=== PATIENT | female | born 1960 | race American Indian/Alaskan Native ===

== ENCOUNTER 2017-09-10 09:52 | Outpatient (CLI) | payer OTHER | END 2017-09-10 09:53 | disposition home or self-care (01) | LOC: LABHHL 09:52 | PROVIDERS: ATTEND Specialist | DX: C50.911 Malignant neoplasm of unspecified site of right female breast (principal) | CPT/HCPCS: 88305; 88342; 88361 ==

== ENCOUNTER 2017-09-27 15:24 | Outpatient (CLI) | payer BC ==
--- NOTE | 2017-09-28 11:13 | Magnetic Resonance Report ---
BILATERAL BREAST MRI WITHOUT AND WITH CONTRAST: 09/27/17 15:24:00 CLINICAL: Newly diagnosed right breast cancer. Status post right ultrasound and guided needle biopsy 09/09/17 with pathologic diagnosis of invasive carcinoma, NOS. [place] grade III/III. COMPARISON:08/25/17 and 09/01/17 mammograms from [facility]. TECHNIQUE: Axial 1.0-mm T1 without, axial high resolution 2.0-mm T2 and axial 1.0-mm dynamic Vibrant high-resolution postcontrast T1 fat saturation sequences on a 1.5 Raven magnet. The examination was performed with an 8 channel dedicated [place] breast coil. Post processing with CAD and subtraction was performed on an [employer] workstation. 20 cc of Multihance was injected without incident via a right antecubital vein 22-gauge INT for the contrast portion of the exam. Consent was obtained prior to the administration of the contrast. FINDINGS: Right: Minimal background parenchymal enhancement. The known breast cancer is in irregular mass at 6 o'clock 14.3 cm from the nipple measuring 29.9 mm anterior to posterior by 9 mm transverse dimension by 11.0 mm superior to inferior. It demonstrates heterogeneous enhancement with mixed kinetics, 177% peak enhancement, 72% type I persistent, 26% type II plateau and 2% type III washout. No other mass or suspicious enhancement of the right breast. No suspicious right axillary or right internal mammary lymph nodes. Left: Minimal background parenchymal enhancement. No mass or suspicious enhancement. No suspicious left axillary or left internal mammary lymph nodes. IMPRESSION: 1. Known right breast cancer at 6 o'clock 14 cm from the nipple. This mass is unusual in that it demonstrates minimal enhancement. I suspect that the MRI over estimates the size of the tumor by including post biopsy hematoma with the measurement. The mammographic measurement of the tumor is probably more accurate at 1.8 x 1.0 x 1.0 cm. 2. No suspicious lymph nodes. 3. Negative left breast. RIGHT BI-RADS 6 -- Known Cancer LEFT BI-RADS 1 -- Negative
== END 2017-09-27 15:25 | disposition home or self-care (01) ==
LOC: SPVIMAG 15:24
PROVIDERS: ATTEND Surgery
DX: C50.511 Malignant neoplasm of lower-outer quadrant of right female breast (principal)
CPT/HCPCS: A9577; C8908; 77059

== ENCOUNTER 2017-11-08 11:25 | Day surgery (SDC) | payer BC ==
[~2017-11-08 11:25] MED LIST: LACTATED RINGERS 1,000 ML IV SCH; VERSED IV NR
--- NOTE | 2017-11-08 12:22 | Anesthesia Consultation ---
Anesthesia Consult and Med Hx Date of service: 11/08/17 - Airway Anesthetic Teeth Evaluation: Good ROM Head & Neck: Adequate Mental/Hyoid Distance: Adequate Mallampati Class: Class II Intubation Access Assessment: Good - Pulmonary Exam CTA: Yes - Cardiac Exam Cardiac Exam: RRR - Pre-Operative Health Status ASA Pre-Surgery Classification: ASA3 Proposed Anesthetic Plan: General - Cardiovascular System Hx Hypertension: Yes (OVER 10 YEARS) - Central Nervous System Hx Psychiatric Problems: No - Other Systems Hx Alcohol Use: Yes (OCC) Hx Substance Use: No Hx Cancer: Yes Hx Obesity: Yes
--- NOTE | 2017-11-08 12:23 | Anesthesia Day of Surgery ---
Anesthesia Day of Surgery - Day of Surgery Patient Examined: Yes Patient H&P Reviewed: Yes Patient is NPO: Yes
[2017-11-08] MEDS ORDERED: MARCAINE 0.25% INFILTRATI ONE (12:56)
[2017-11-08] MEDS ORDERED: XYLOCAINE 1% 20 mL ONE (12:56)
[2017-11-08] MEDS ORDERED: METHYLENE BLUE ONE (12:57)
[2017-11-08] MEDS ORDERED: NACL 0.9% 0 ML ONE (12:58)
[2017-11-08] MEDS ORDERED: ANCEF ONE (12:58)
[2017-11-08] MEDS ORDERED: NEURONTIN PO NR (13:00)
[2017-11-08] MEDS ORDERED: PEPCID PO NR (13:00)
[2017-11-08] MEDS ORDERED: XYLOCAINE MPF 2% ONE (13:04)
[2017-11-08] MEDS ORDERED: DIPRIVAN 10 MG/ML IV ONE (13:04)
[2017-11-08] MEDS ORDERED: SUBLIMAZE ONE (13:04)
[2017-11-08] MEDS ORDERED: VANCOMYCIN/NS 1 GM/250 ML 1 GM/250 ML BAG IV SCH (14:00)
[2017-11-08] MEDS ORDERED: VANCOMYCIN PHARMACY TO DOSE IV SCH (14:00)
[2017-11-08] MEDS ORDERED: DECADRON ONE (14:46)
[2017-11-08] MEDS ORDERED: WATER FOR IRRIG STERILE IR ONE (15:20)
[2017-11-08] MEDS ORDERED: MARCAINE 0.5% INFILTRATI ONE (15:20)
[2017-11-08] MEDS ORDERED: XYLOCAINE 1% 20 mL INFILTRATI ONE (15:20)
[2017-11-08] MEDS ORDERED: NACL 0.9% 1000 ML 1,000 ML ONE (15:46)
[2017-11-08] MEDS ORDERED: ZOFRAN ONE (17:20)
--- NOTE | 2017-11-08 17:36 | Short Stay Summary ---
Short Stay Documentation Date of service: 11/08/17 - History H&P: obtained from office - Allergies and Medications Current Medications: Allergies Penicillins Allergy (Verified 11/02/17 12:25) Rash Home Medications Medication Instructions Recorded Confirmed Last Taken Type Aspirin EC [Aspirin Enteric Coated 81 mg PO QDAY 11/02/17 11/08/17 11/01/17 09: 00 History TAB] Ergocalciferol [Vitamin D2] 1 cap PO QWEEK 11/02/17 11/08/17 11/01/17 09:00 History Lisinopril/Hydrochlorothiazide 1 each PO DAILY 11/02/17 11/08/17 11/08/17 07:00 History [Zestoretic 10-12.5 mg Tablet] Active Medications Celecoxib (Celebrex) 200 mg PO PREOP NR Stop: 11/08/17 23:59 Last Admin: 11/08/17 12:48 Dose: 200 mg Famotidine (Pepcid) 20 mg PO PREOP NR Stop: 11/08/17 23:59 Last Admin: 11/08/17 12:47 Dose: 20 mg Gabapentin (Neurontin) 300 mg PO PREOP NR Stop: 11/08/17 23:59 Last Admin: 11/08/17 12:47 Dose: 300 mg Lactated Ringer's (Lactated Ringers) 1,000 mls @ 100 mls/hr IV DIRECT EVELINA Last Admin: 11/08/17 12:40 Dose: 100 mls/hr Vancomycin HCl (Vancomycin/Ns 1 Gm/250 Ml) 1 gm in 250 mls @ 167.007 mls/hr IV PREOP EVELINA; Protocol Stop: 11/08/17 23:59 Last Admin: 11/08/17 13:21 Dose: 167.007 mls/hr Midazolam HCl (Versed) 2 mg IV PREOP NR Stop: 11/08/17 23:59 Last Admin: 11/08/17 12:49 Dose: 2 mg - Brief post op/procedure progress note Date of procedure: 11/08/17 Pre-op diagnosis: Right breast cancer of the lower outer quadrant Post-op diagnosis: same Procedure: Right partial mastectomy with SLNB Anesthesia: GETA Findings: Radiograph specimen with clip present; 4 SLNs Surgeon: NEIL ALCANTAR Estimated blood loss: minimal Pathology: list (right partial mastectomy; 4 SLNs) Specimen disposition: to lab Condition: stable - Disposition Condition at discharge: Good Disposition: DC-01 TO HOME OR SELFCARE Short Stay Discharge Plan Activity: other (no heavy lifting) Diet: regular Wound: other (keep incision clean and dry; may shower in 48 hours; no baths, pools or lakes; do not rub or scrub incision; hold aspirin until seen by Dr. Alcantar; wear breast binder or sports bra) Follow up with: STEFAN MIGUEL MD [Primary Care Provider] - 7 Days Prescriptions: HYDROcodone/APAP 5-325 [[place] 5/325] 1 each PO Q6HR PRN #30 tablet PRN Reason: Pain Sulfamethoxazole/Trimethoprim [Bactrim DS TAB] 1 each PO BID 7 Days #14 tablet
--- NOTE | 2017-11-08 17:46 | Operative Report ---
Operative Report Operative Report: Date of Service: November 08, 2017 Preoperative diagnosis: Right breast cancer of the lower outer quadrant Postoperative diagnosis: Same Procedure: Right partial mastectomy of the lower outer quadrant and SLNB Surgeon: Cynthia Alcantar MD Anesthesia: General Findings: Right breast mass and clip present within radiograph specimen; 4 SLNs Complications: None EBL: Minimal Disposition: PACU in good condition Indications for operative procedure: This is a 57 year old lady with newly diagnosed right breast cancer of the upper outer quadrant, Stage I triple negative. Recommendations are to proceed with a partial mastectomy and SLNB. Patient wished to proceed with the above procedure. Genetic testing negative for any significant gene mutation. Procedure in detail: Patient was then taken to the operating room. Gen. anesthesia was administered. The right nipple was injected with radioisotope. The right breast and axilla were prepped and draped in the normal sterile operative fashion. Timeout was performed. Gamma probe was inserted into the axilla. The area of hot spot was identified. A right axillary incision was made with a 15 blade knife with dissection taken down to the subcutaneous tissues. The axillary fascia was opened with the Bovie cautery. Gamma probed inserted into the axilla and 4 SLNS were identified. All remaining counts were less than 10% of the highest count. Lymph nodes were sent to pathology for permanent processing. Hemostasis was obtained in the right axillary cavity. Axillary cavity was appropriately irrigated and suctioned. Hemostasis was noted. Axilla was anesthesized with 1% lidocaine with quarter percent marcaine. Axillary fascia was approximated and closed using interrupted 3-0 Vicryl and the skin brought together and closed using a running 4-0 Monocryl followed by skin affix. Attention was then taken towards the right breast. Known right breast cancer mass at the 6:00 position 14 cm from the nipple at inframammary fold. Ultrasound was used to angelito out surgical incision. A breast incision was made with a 15 blade knife at the 6:00 position 14 cm from the nipple and dissection taken down to subcutaneous tissues. First began raising of the superio flap with dissection take down to the pectoralis muscle, followed by raising of the inferior flap, medial flap and lateral flap with all flaps taken down to the pectoralis muscle. The breast area of concern was appropriately removed posteriorly from the pectoralis muscle with the aid of the Bovie cautery. Specimen was marked and then sent to pathology and radiology; radiograph specimen with clip and mass present. Breast cavity was irrigated and hemostasis was obtained. Breast cavity was anesthesized with 1% lidocaine with quarter percent marcaine.The posterior deep breast tissues were approximated and closed using interrupted 3-0 Vicryl. The subcutaneous tissues were approximated and closed using interrupted 3-0 Vicryl followed by closing of the skin with a running 4-0 Monocryl and skin affix. The patient tolerated surgery very well and she was awaken from anesthesia without any complication and transported to PACU in good condition.
[2017-11-08] MEDS ORDERED: NORCO 5/325 PO PRN (18:16)
[2017-11-08 20:12] VITALS: BP 147/85
--- NOTE | 2017-11-09 13:09 | XRay Report ---
SPECIMEN RADIOGRAPH RIGHT BREAST: 11/08/17 11:25:00 CLINICAL: Surgical excision of a known cancer. FINDINGS: A mass with a localizer clip is identified within the specimen. IMPRESSION: Excision of the targeted lesion.
== END 2017-11-08 20:00 | disposition home or self-care (01) ==
LOC: OR 11:25
PROVIDERS: ATTEND Surgery
DX: C50.511 Malignant neoplasm of lower-outer quadrant of right female breast (principal); D05.11 Intraductal carcinoma in situ of right breast; I10 Essential (primary) hypertension; E66.9 Obesity, unspecified; Z90.710 Acquired absence of both cervix and uterus; Z88.0 Allergy status to penicillin; Z79.82 Long term (current) use of aspirin; Z79.899 Other long term (current) drug therapy
CPT/HCPCS: 19301; 36415; 38525; 76098; 78800; 82962; 84132; 88307; 88341; 88342; 88361; A9541; J1100; J2250; J2405; J2704; J3010; J3370; J7030; J7120; 88333; J0690; Q9968

== ENCOUNTER 2017-12-09 08:33 | Day surgery (SDC) | payer BC ==
[2017-12-09] MEDS ORDERED: DIPRIVAN 10 MG/ML IV ONE (09:13)
[2017-12-09] MEDS ORDERED: NACL BACTERIOSTATIC INFILTRATI ONE (09:18)
--- NOTE | 2017-12-09 09:42 | Anesthesia Consultation ---
Anesthesia Consult and Med Hx Date of service: 12/09/17 - Airway Anesthetic Teeth Evaluation: Good ROM Head & Neck: Adequate Mental/Hyoid Distance: Adequate Mallampati Class: Class III Intubation Access Assessment: Possibly Difficult - Pulmonary Exam CTA: Yes - Cardiac Exam Cardiac Exam: RRR - Pre-Operative Health Status ASA Pre-Surgery Classification: ASA3 Proposed Anesthetic Plan: General - Cardiovascular System Hx Hypertension: Yes (OVER 10 YEARS) - Central Nervous System Hx Psychiatric Problems: No - Other Systems Hx Alcohol Use: Yes (OCC) Hx Substance Use: No Hx Cancer: Yes Hx Obesity: Yes
--- NOTE | 2017-12-09 09:42 | Anesthesia Day of Surgery ---
Anesthesia Day of Surgery - Day of Surgery Patient Examined: Yes Patient H&P Reviewed: Yes Patient is NPO: Yes
[2017-12-09] MEDS ORDERED: SUBLIMAZE ONE (09:46)
[2017-12-09 09:57] LABS: Hemoglobin 11.9 gm/dl (10.1-14.3); Red Blood Count 4.83 M/mm3 (3.65-5.03)
[2017-12-09 09:58] LABS: Basophils % (Auto) 0.1 % (0.0-1.8); Hematocrit 37.5 % (30.3-42.9); Lymphocytes # (Auto) 1.2 K/mm3 (1.2-5.4); Mean Corpuscular HGB Conc 32 % (30-34); Mean Corpuscular Hemoglobin 25 pg (28-32); Mean Corpuscular Volume 78 fl (79-97); Monocytes # (Auto) 0.4 K/mm3 (0.0-0.8); Monocytes % (Auto) 5.1 % (0.0-7.3); Platelet Count 244 K/mm3 (140-440); Red Cell Distribution Width 17.5 % (13.2-15.2)
[2017-12-09 09:59] LABS: BUN/Creatinine Ratio 23; Blood Urea Nitrogen 18 mg/dL (7-17); Calcium 9.4 mg/dL (8.4-10.2); Hemolysis Index 58
[2017-12-09] MEDS ORDERED: VANCOMYCIN/NS 1 GM/250 ML 1 GM/250 ML BAG IV NR (10:00)
[2017-12-09] MEDS ORDERED: LACTATED RINGERS 1,000 ML IV SCH (10:00)
[2017-12-09] MEDS ORDERED: VANCOMYCIN PHARMACY TO DOSE IV SCH (10:00)
[2017-12-09] MEDS ORDERED: DEMEROL IV PRN (10:00)
[2017-12-09] MEDS ORDERED: ZOFRAN IV PRN (10:00)
[2017-12-09] MEDS ORDERED: VERSED IV NR (10:00)
[2017-12-09] MEDS ORDERED: XYLOCAINE 1% 20 mL ONE (10:05)
[2017-12-09] MEDS ORDERED: HEPARIN 10,000 UNITS/10 ML ONE (10:06)
[2017-12-09] MEDS ORDERED: MARCAINE 0.5% 30 ML INFILTRATI ONE (10:06)
[2017-12-09] MEDS ORDERED: NACL 0.9% 250ML 0 ML ONE (10:06)
[2017-12-09] MEDS ORDERED: GELFOAM TP ONE (10:06)
[2017-12-09] MEDS ORDERED: NACL P/F VIAL (10 ML) 10 ML ONE (10:28)
[2017-12-09] MEDS ORDERED: NACL 0.9% IR ONE (10:54)
[2017-12-09] MEDS ORDERED: XYLOCAINE 1% 20 mL INFILTRATI ONE (10:55)
[2017-12-09] MEDS ORDERED: HEPARIN IV ONE (10:55)
[2017-12-09] MEDS ORDERED: NACL P/F VIAL (10 ML) INFILTRATI ONE (10:55)
[2017-12-09] MEDS ORDERED: MARCAINE 0.5% INFILTRATI ONE (10:55)
--- NOTE | 2017-12-09 11:39 | Short Stay Summary ---
Short Stay Documentation Date of service: 12/09/17 - History H&P: obtained from office - Allergies and Medications Current Medications: Allergies Penicillins Allergy (Verified 12/07/17 13:50) Rash Home Medications Medication Instructions Recorded Confirmed Last Taken Type Aspirin EC [Aspirin Enteric Coated 81 mg PO QDAY 11/02/17 12/09/17 12/08/17 History TAB] Ergocalciferol [Vitamin D2] 1 cap PO QWEEK 11/02/17 12/09/17 2 Weeks Ago History ~11/25/17 Lisinopril/Hydrochlorothiazide 1 each PO DAILY 11/02/17 12/07/17 12/08/17 History [Zestoretic 10-12.5 mg Tablet] HYDROcodone/APAP 5-325 [[place] 1 each PO Q6HR PRN #30 tablet 11/08/17 12/09/17 Rx 5/325] Clindamycin [Clindamycin CAP] 150 mg PO BID 12/07/17 12/07/17 12/08/17 History Dexamethasone 4 mg PO BID 12/07/17 12/07/17 12/08/17 History Active Medications Hydromorphone HCl (Dilaudid) 0.5 mg IV Q10MIN PRN PRN Reason: Pain , Severe (7-10) Stop: 12/09/17 16:00 Vancomycin HCl (Vancomycin/Ns 1 Gm/250 Ml) 1 gm in 250 mls @ 167.007 mls/hr IV PREOP NR; Protocol Stop: 12/09/17 18:00 Last Admin: 12/09/17 09:59 Dose: 167.007 mls/hr Lactated Ringer's (Lactated Ringers) 1,000 mls @ 100 mls/hr IV DIRECT EVELINA Last Admin: 12/09/17 09:57 Dose: 100 mls/hr Meperidine HCl (Demerol) 25 mg IV ONCE PRN PRN Reason: Shivering Stop: 12/09/17 18:00 Midazolam HCl (Versed) 2 mg IV PREOP NR Stop: 12/09/17 23:59 Last Admin: 12/09/17 09:58 Dose: 2 mg Ondansetron HCl (Zofran) 4 mg IV ONCE PRN PRN Reason: Nausea And Vomiting Stop: 12/09/17 18:00 Vancomycin HCl (Vancomycin Pharmacy To Dose) 1 each IV PKCONSULT EVELINA - Physical exam General appearance: no acute distress Integumentary: no rash, no growths, no abnormal pigmentation HEENT: Atraumatic, EOMI Lungs: Normal air movement Breasts: normal Neurological: Normal speech - Brief post op/procedure progress note Date of procedure: 12/09/17 (Dictation#[id number]) Pre-op diagnosis: breast cancer Post-op diagnosis: same Procedure: Ultrasound guided port placement Anesthesia: GETA Findings: normal anatomy Surgeon: CHRISTOPHER RAY Estimated blood loss: minimal (10cc) Pathology: none Condition: stable - Hospital course Hospital course: uneventful - Disposition Condition at discharge: Stable Disposition: DC-01 TO HOME OR SELFCARE - Discharge Diagnoses (1) Breast cancer Status: Acute Short Stay Discharge Plan Activity: no driving until cleared by PCP Diet: regular Wound: open to air, keep clean and dry, other (May shower in 48 hours. Pat dry wounds. Apply ice pack to left shoulder/neck area for 10-15min 4-5x/day) Special Instructions: no heavy lifting (or strenuous activity for 1 week) Follow up with: STEFAN MIGUEL MD [Primary Care Provider] - 7 Days
[2017-12-09] MEDS: DILAUDID IV PRN ×2 (11:40→11:50)
--- NOTE | 2017-12-09 11:47 | Fluoroscopy Report ---
AP CHEST: HISTORY: Breast cancer, Jnbnhi-z-Qnwu placement A left IJ Mvnhgx-o-Txcp has been inserted which terminates in the mid right atrium. There is no evidence for pneumothorax. Mild cardiomegaly and pulmonary venous congestion are identified. No evidence for pneumonia or CHF. The bony structures are unremarkable. IMPRESSION: Xeutbd-z-Ezqd placement as described. No pneumothorax. Mild cardiomegaly and pulmonary venous congestion but no CHF.
--- NOTE | 2017-12-09 12:05 | Operative Report ---
PREOPERATIVE DIAGNOSIS: Right breast cancer. POSTOPERATIVE DIAGNOSIS: Right breast cancer. PROCEDURE: 1. Placement of indwelling tunneled central venous catheter with subcutaneous port. 2. Ultrasound vascular guidance. ATTENDING PHYSICIAN: Diamond Gunderson MD ANESTHESIA: General. ESTIMATED BLOOD LOSS: 10 mL. FLUIDS: 300 mL. FINDINGS: Normal vascular anatomy. IMPLANTS: Infusaport. COMPLICATIONS: None. DISPOSITION: Stable, transferred to recovery. INDICATIONS: This is a 57-year-old female with recent diagnosis of right breast cancer. The patient assessed to be in need for chemotherapy immediately. General Surgery was consulted for port placement. Procedure, risks, benefits were explained to the patient. Risks included but were not limited to infection, bleeding, pain, injury to surrounding structures, possible hemopneumothorax, possible port malfunction, possible need for port replacement and/or removal. The patient understood and consented. OPERATIVE NOTE: The patient was brought to the operating room, placed on the table in supine position. I initially did an ultrasound evaluation of the left subclavian and left internal jugular veins. I think due to the body habitus the left subclavian vein was difficult to identify in deep. The left internal jugular vein was easily identified and easy to access. Therefore, decision was made for initial attempt in the left internal jugular vein. The patient was prepped and draped in usual sterile fashion. A roll had been placed behind the spine. SCDs were in place. Antibiotics had been given. Time out was performed. The patient was placed in Trendelenburg position. Under ultrasound guidance, I was able to assess the full aspect of the left internal jugular vein. It did appear to be patent. I did not see any evidence of a clot. It was easily compressible. We made a small incision in the lateral aspect of the neck. I watched the echogenic needle, entered the left internal jugular vein, had good aspiration of venous blood. I confirmed that the tip of the needle was in the center of the vein and then I passed the guidewire, it passed easily. I confirmed the placement of the guidewire in the internal jugular vein with ultrasound. Thereafter, we went to fluoroscopy, we could see the guidewire go all the way to the right side of the heart. I then injected the planned site for the port. 1% lidocaine and 0.5% Marcaine was used to anesthetize that site and the planned catheter site. Skin was sharply incised. Dissection was carried out bluntly. Hemostasis was achieved with electrocautery. I tested to make sure the port could fit easily and it did. We then tunneled the catheter up to the neck. I was able to do that without any complication. I made sure that we were above the clavicle and we came out safely from the incision in the neck. The dilator and sheath were then inserted over the wire. The guidewire was able to be periodically checked and it moved freely. Once the entire sheath was in then the dilator and the wire were removed. I covered the opening to the sheath and then passed the catheter. Initially, the catheter folded upon itself prior to entering the right atrium. However, under fluoroscopic guidance, we were able to pull the catheter back and then readjusted. It took about 3 attempts, but then finally got it to go into the right atrium. We then adjusted the length and then I proceeded to excise off the excess catheter we cut at about 38 cm and then attached the port. The locking device was placed over it and then the port was placed in the subcutaneous tissue. Because of the patient's body habitus, initially on fluoroscopy the catheter appeared to take a sharp turn between the port site and the entry into the internal jugular vein. Part of it, I thought was her body habitus and her positioning, I thought that when she was sitting upright, the tissue would then fall inferiorly, which would straighten out the catheter. I was able to easily aspirate and flush the port with the heparinized flush solution and assessed to make sure that we had good hemostasis. The sheath was completely removed. Catheter appeared to be in adequate position. I then placed the concentrated heparin locking solution. I closed the dermis at the port site with interrupted 3-0 Vicryl stitches. Skin was closed with a running 4-0 Monocryl subcuticular stitch. Skin was cleaned and dried. Dermabond was used to close both incisions. The entry site at the internal jugular vein approximated very well just because of her body habitus. Stitch was not required. It came together very easily and was just sealed with Dermabond. Postoperative chest x-ray showed no evidence of pneumothorax. Catheter appeared to be in very good position and as we had hoped when she was sitting up the catheter then was pulled downward and that straightened out the path of the catheter. was given an update. He was appreciative of our care. The patient tolerated the procedure well. All counts were correct at the end of the case. JOB# [id number] MIGUEL/MANJINDER
[2017-12-09 13:02] VITALS: BP 128/85
[2017-12-09] MEDS ORDERED: NEO SYNEPHRINE/NS Syringe(OR USE) IV ONE (13:43)
[2017-12-09] MEDS ORDERED: ZOFRAN ONE (13:43)
[2017-12-09] MEDS ORDERED: XYLOCAINE MPF 2% ONE (13:43)
== END 2017-12-09 12:53 | disposition home or self-care (01) ==
LOC: OR 08:33
PROVIDERS: ATTEND Surgery
DX: C50.511 Malignant neoplasm of lower-outer quadrant of right female breast (principal); I10 Essential (primary) hypertension; E66.9 Obesity, unspecified; E78.00 Pure hypercholesterolemia, unspecified; Z79.899 Other long term (current) drug therapy; Z88.0 Allergy status to penicillin; Z98.890 Other specified postprocedural states; Z90.710 Acquired absence of both cervix and uterus; Z79.82 Long term (current) use of aspirin
CPT/HCPCS: 36415; 36561; 76937; 77001; 80048; 82962; 85025; A4649; C1788; J1170; J1644; J2250; J2370; J2405; J2704; J3010; J3370; J7120; J7050

== ENCOUNTER 2018-10-04 10:53 | Outpatient (CLI) | payer BC ==
--- NOTE | 2018-10-04 11:37 | Mammography Report ---
BILATERAL DIGITAL SCREENING MAMMOGRAM with CAD: 10/04/18 10:53:00 CLINICAL: Routine screening.Status post right partial mastectomy 11/08/17 with subsequent radiation therapy. COMPARISON:09/16/17 and 08/25/17 FINDINGS: The breasts are almost entirely fatty. A left upper inner infusion port. Right lower posterior scar. Moderate skin thickening of the right breast. No mass, architectural distortion or suspicious calcifications. IMPRESSION: No mammographic evidence of malignancy. BI-RADS CATEGORY: 2 -- Benign RECOMMENDATION: Routine mammographic screening in one year. COMMENT: Patient follow-up letters are generated by our [employer] application.
== END 2018-10-04 10:54 | disposition home or self-care (01) ==
LOC: SPVWC 10:53
PROVIDERS: ATTEND Surgery
DX: Z12.31 Encounter for screening mammogram for malignant neoplasm of breast (principal); E78.00 Pure hypercholesterolemia, unspecified; I10 Essential (primary) hypertension; E66.9 Obesity, unspecified; Z90.710 Acquired absence of both cervix and uterus
CPT/HCPCS: 77067

== ENCOUNTER 2019-10-10 11:05 | Outpatient (CLI) | payer BC ==
--- NOTE | 2019-10-10 11:58 | Mammography Report ---
DIGITAL SCREENING MAMMOGRAM WITH CAD, 10/10/2019 INDICATION: Routine screening mammography. TECHNIQUE: Digital bilateral 2D mammography was obtained in the craniocaudal and mediolateral obliq ue projections. This examination was interpreted with the benefit of Computer-Aided Detection analysi s. COMPARISON: 10/04/2018 FINDINGS: Breast Density: There are scattered areas of fibroglandular density. There is no evidence of dominant mass, suspicious calcifications or architectural distortion in the l eft breast. Postsurgical changes are noted at the 6:00 position in the right breast, posterior depth. There is increasing homogeneous density at the operative site. Recommend further evaluation with ult rasound. IMPRESSION: Follow up recommendation: Ultrasound Category 0: Incomplete. Needs additional imaging evaluation and/or prior mammograms for comparison. A "normal" or negative report should not discourage follow up or biopsy of a clinically significant f inding. A written summary of these findings will be mailed to the patient. The patient will be entered into a mammography reporting system which will generate a reminder letter for the patient's next appointmen t at the appropriate interval. The [employer] recommends yearly mammograms starting at age 40 and continuing as l merline as a woman is in good health. Breast MRI is recommended for women with an approximate 20-25% or greater lifetime risk of breast cancer, including women with a strong family history of breast or ova melvi cancer or who have been treated for Hodgkin's disease. Signer Name: Anoop Gatica MD Signed: 10/10/2019 11:54 AM Workstation Name: [email or web address]
--- NOTE | 2019-10-10 12:51 | Mammography Report ---
DIGITAL DIAGNOSTIC MAMMOGRAM WITH CAD, 10/10/2019 INDICATION: S/P SEROMA ASPIRATION TECHNIQUE: Digital right mammographic imaging was performed. This examination was interpreted with the benefit of Computer-aided Detection analysis. COMPARISON: 10/04/2018 and 10/10/2019 FINDINGS: Breast Density: There are scattered areas of fibroglandular density. Since the screening mammogram performed today the patient has undergone aspiration of seroma of the inferior right breast at the surgical site. The previous homogeneous density noted on the screening m ammogram 10/10/2019 has decreased consistent with aspiration of fluid. The the appearance is now simil ar to the 10/04/2018 mammogram. IMPRESSION: Follow up recommendation: Routine yearly BI-RADS Category 2: Benign. A "normal" or negative report should not discourage follow up or biopsy of a clinically significant f inding. A written summary of these findings will be mailed to the patient. The patient will be entered into a mammography reporting system which will generate a reminder letter for the patient's next appointmen t at the appropriate interval. According to the [employer], yearly mammograms are recommended starting at age 40 and continuing as long as a woman is in good health. Breast MRI is recommended for women with an karma roximately 20-25% or greater lifetime risk of breast cancer, including women with a strong family his tory of breast or ovarian cancer and women who have been treated for Hodgkin's disease. Signer Name: Anoop Gatica MD Signed: 10/10/2019 12:47 PM Workstation Name: [employer]
== END 2019-10-10 11:06 | disposition home or self-care (01) ==
LOC: SPVWC 11:05
PROVIDERS: ATTEND Surgery
DX: Z12.31 Encounter for screening mammogram for malignant neoplasm of breast (principal); N64.89 Other specified disorders of breast
CPT/HCPCS: 77067

== ENCOUNTER 2020-10-10 11:32 | Outpatient (CLI) | payer BC, OTHER ==
--- NOTE | 2020-10-10 15:34 | Mammography Report ---
DIGITAL SCREENING MAMMOGRAM WITH CAD, 10/10/2020 CLINICAL INFORMATION / INDICATION: Routine screening mammography. SCREENING MAMMO TECHNIQUE: Digital bilateral 2D mammography was obtained in the craniocaudal and mediolateral obliqu e projections. This examination was interpreted with the benefit of Computer-Aided Detection analysis . COMPARISON: 10/10/19. FINDINGS: Breast Density: The breasts are almost entirely fatty. No dominant mass, suspicious calcifications, or architectural distortion in the left breast. There is a left Port-A-Cath. Post lumpectomy/radiation changes in the right inferior breast posteriorly are stable. No new abnorma lity is seen. IMPRESSION: No mammographic evidence of malignancy. Follow up recommendation: Routine yearly BI-RADS Category 2: Benign. A "normal" or negative report should not discourage follow up or biopsy of a clinically significant f inding. A written summary of these findings will be mailed to the patient. The patient will be entered into a mammography reporting system which will generate a reminder letter for the patient's next appointmen t at the appropriate interval. The [employer] recommends yearly mammograms starting at age 40 and continuing as l merline as a woman is in good health. Breast MRI is recommended for women with an approximate 20-25% or greater lifetime risk of breast cancer, including women with a strong family history of breast or ova meliv cancer or who have been treated for Hodgkin's disease. Signer Name: Bret Galvez MD Signed: 10/10/2020 3:30 PM Workstation Name: [employer]
== END 2020-10-10 11:33 | disposition home or self-care (01) ==
LOC: SPVWC 11:32
PROVIDERS: ATTEND Surgery
DX: Z12.31 Encounter for screening mammogram for malignant neoplasm of breast (principal); N64.89 Other specified disorders of breast
CPT/HCPCS: 77067